=== PATIENT | female | born 1995 | race Caucasian/White ===

== ENCOUNTER 2019-06-28 09:00 | Inpatient (IN) | payer OTHER ==
[2019-06-28] MEDS ORDERED: ELECTROLYTE-148 SOLN 1,000 ML IV SCH (09:40)
[2019-06-28 10:05] VITALS: BMI 28.5
[2019-06-28 10:42] LABS: BASO % 0.3 % (0-2.0); EOS % 0.1 % (0-4.5); HEMATOCRIT 37.8 % (32.4-45.2); HEMOGLOBIN 13.1 GM/dL (10.7-15.3); LYMPH % 9.4 % (8-40); MCH 31.9 pg (25.7-33.7); MCHC 34.7 g/dl (32.0-36.0); MEAN PLT VOLUME 9.2 fl (7.5-11.1); MONO % 5.3 % (3.8-10.2); NEUT % 84.9 % (42.8-82.8); PLATELET COUNT 196 K/MM3 (134-434); RBC 4.11 M/mm3 (3.60-5.2); WHITE BLOOD COUNT 10.7 K/mm3 (4.0-10.0)
--- NOTE | 2019-06-28 10:56 | HP ---
Past Medical History - Primary Care Physician PCP:: Mickie Rivers - Admission Chief Complaint: 23yo P0. painfull contructions since 6am, no VB, LOF, + FM, desires pain meds History of Present Illness: 1. Late registrant - was planning on TOP, missed 1st tr. genetic testing 2. MHTFR positive - ASA recommended 3. Rh neg - s/p RhoGam 03/29/19 - will determine need for RhoGham post delivery 4. was on Psych polypharmacy early in - off meds the rest of 5. Flu shot 03/29/19 6. TDap 04/26/19 7. No h/o HSV History Source: Patient, Medical Record Limitations to Obtaining History: No Limitations - Past Medical History Pulmonary: Yes: Asthma (mild, inhaler PRN, no outbreaks in ) Gastrointestinal: Yes: Irritable Bowel Disease ...: 1 ...Para: 0 ...Term: 0 ...: 0 ...Spon : 0 ...Induced : 0 ...Multiple Gestation: 0 ...LMP: 09/21/18 ... Weeks Gestation by Dates: 40.0 ...EDC by Dates: 06/28/19 ...EDC by Sono: 06/26/19 Heme/Onc: Yes: Other (MHTFR carrier - was recommended ASA in ) Psych: Yes: Anxiety, Depression, Other (ADD) - Past Surgical History Past Surgical History: Yes: None Hx Myomectomy: No Hx Transabdominal Cerclage: No - Smoking History Smoking history: Never smoked Have you smoked in the past 12 months: No - Alcohol/Substance Use Hx Alcohol Use: No History of Substance Use: reports: None - Social History Usual Living Arrangement: Yes: With Significant Other History of Recent Travel: No Home Medications - Allergies Allergies/Adverse Reactions: Allergies Allergy/AdvReac Type Severity Reaction Status Date / Time No Known Allergies Allergy Verified 06/28/19 09:54 - Home Medications Home Medications: Ambulatory Orders Pnv No.95/Ferrous Fum/Folic AC [ Vitamin Tablet] 1 each PO DAILY Family Medical History Family Hx Cancer: Mother (skin) Review of Systems - Review of Systems Constitutional: reports: No Symptoms Eyes: reports: No Symptoms HENT: reports: No Symptoms Neck: reports: No Symptoms Cardiovascular: reports: No Symptoms Respiratory: reports: No Symptoms Gastrointestinal: reports: No Symptoms Genitourinary: reports: Other (uterine contructions) Musculoskeletal: reports: No Symptoms Integumentary: reports: No Symptoms Neurological: reports: No Symptoms Endocrine: reports: No Symptoms Hematology/Lymphatic: reports: No Symptoms Psychiatric: reports: No Symptoms Pain Intensity: 9 Physical Exam - Maternity Vital Signs: Vital Signs Temperature 98.2 F 06/28/19 10:08 Pulse Rate 81 06/28/19 10:08 Respiratory Rate 20 06/28/19 10:08 Blood Pressure 111/69 06/28/19 10:08 O2 Sat by Pulse Oximetry (%) Constitutional: Yes: Well Nourished, No Distress, Calm Eyes: Yes: WNL, Conjunctiva Clear, EOM Intact HENT: Yes: WNL, Atraumatic, Normocephalic Neck: Yes: WNL, Supple, Trachea Midline Cardiovascular: Yes: WNL, Regular Rate and Rhythm Lungs: Clear to auscultation Breast(s): Yes: WNL - Abdominal Exam/OB Fundal Height: 40 (EFW 7lb) Number of Fetuses: Single Presentation: Vertex Contractions: Yes Regularity: Irregular Intensity: Mod/Strong Monitor Mode: External Heart Rate (range): 130 Heart Rate Location: Midline Category: I Accelerations: Uniform Decelerations: None - Vaginal Exam/OB Vaginal Bleediing: No Speculum Exam: No Dilatation (cm): 5-6 Effacement (%): 90% Amniotic Membrane Status: Intact Presentation: Vertex/Position Station: -3 - Physical Exam Musculoskeletal: Yes: WNL Extremities: Yes: WNL Edema: No Integumentary: Yes: WNL ...Motor Strength: WNL Psychiatric: Yes: WNL, Alert, Oriented - Labs Lab Results: CBC, BMP 06/28/19 10:05 Assessment/Plan 23yo P0 @ 40 wks in active labor admit to L&D Labs, IVF, NPO Epidural requested Fetus Category 1 Maternal status reassuring Adequate pelvis EFW 7lb anticipate
[2019-06-28 11:03] LABS: INR 0.91 (0.83-1.09); PROTHROMBIN TIME (PATIENT) 10.7 SEC (9.7-13.0)
[2019-06-28 11:04] LABS: BLOOD UREA NITROGEN 7.8 mg/dL (7-18); CALCIUM 8.5 mg/dL (8.5-10.1); CREATININE 0.6 mg/dL (0.55-1.3); POTASSIUM 3.9 mmol/L (3.5-5.1)
[2019-06-28 11:06] LABS: ACTIVATED PTT 25.3 SECONDS (25.2-36.5)
[2019-06-28] MEDS ORDERED: FENTANYL/BUPIVACAINE/NS/PF - PCEA - 50 ML DISP.SYRIN EP ONE ×3 (11:14→18:36)
[2019-06-28] MEDS: ELECTROLYTE-148 SOLN 1,000 ML IV SCH ×2 (11:15→18:23)
[2019-06-28] MEDS ORDERED: NALOXONE HCL 0.4 MG/ML VIAL IVPUSH PRN ×2 (12:46→13:23)
[2019-06-28] MEDS ORDERED: FENTANYL/BUPIVACAINE/NS/PF - PCEA - 50 ML DISP.SYRIN EP SCH ×3 (13:00→13:30)
[2019-06-28] MEDS ORDERED: OXYTOCIN 20 UNITS in 0.9% NS 20 UNIT/1,000 ML INFUS.BAG IV ONE (19:58)
[2019-06-28] MEDS ORDERED: LIDOCAINE HCL 1% PRESERVATIVE FREE - 30ML VIAL ONE (20:29)
[2019-06-28] MEDS ORDERED: BENZOCAINE 28 GM HEMORRHOIDAL OINTMENT TP PRN (20:59)
[2019-06-28] MEDS ORDERED: BISACODYL 10 MG SUPP.RECT RC PRN (20:59)
[2019-06-28] MEDS ORDERED: WITCH HAZEL 50% (TUCKS) 40 PAD/JAR PAD TP PRN (20:59)
[2019-06-28] MEDS ORDERED: BENZOCAINE 20% 57 GM BOTTLE TP PRN (20:59)
[2019-06-28] MEDS ORDERED: METHYLERGONOVINE MALEATE 0.2 MG/1 ML AMP IM PRN (20:59)
[2019-06-28] MEDS ORDERED: D5W-LR W/ 20 UNITS OXYTOCIN 20 UNIT/1,000 ML INFUS.BAG IV SCH (21:00)
--- NOTE | 2019-06-28 21:07 | PN ---
Delivery - Delivery Vaginal Delivery: No Problems Type of Anesthesia: Local, Epidural Episiotomy/Laceration: Midline, 1st degree EBL (cc): 300 Delivery, Single - Stages of Labor Date 1st Stage Initiatied: 06/28/19 Time 1st Stage Initiated: 06:00 Date 2nd Stage Initiated: 06/28/19 Time 2nd Stage Initiated: 19:15 Date of Delivery: 06/28/19 Time of Delivery: 20:24 Date Placenta Delivered: 06/28/19 Time Placenta Delivered: 20:29 Placenta: Yes: Spontaneous - Condition of Infant Busser/Roll Cutter Present: Yes Name: Philip Felix Infant Gender: Male Weight: 8 lb Position: Right, OP - 1 Minute Total Score: 9 5 Minutes Total Score: 9 - [place] Feeding Plan Initial Plan: Exclusive throughout hospitalization Benefits of Exclusively reinforced: Yes Remarks - Remarks Remarks: Uncomplicated vaginal delivery over 1st degree laceration, ROP with moderate meconium cord clamped and cut, baby handed to supervisor dehydrogenation Placenta delivered spontaneously perineum repaired with 2-0 Chromic Patient and baby stable in Labor room
[2019-06-28 21:41] LABS: VENOUS PC02 39.5 mmHg (38-52); VENOUS PH 7.35 (7.31-7.41)
[2019-06-28 21:54] LABS: VENOUS PO2 < 49 mmHg (28-48)
[2019-06-28] MEDS: FERROUS SO4 325 MG TABLET (FP) PO SCH (22:00)
[2019-06-29] MEDS: IBUPROFEN 600 MG TABLET (FP) PO PRN ×3 (01:45→20:48)
[2019-06-29] MEDS: ACETAMINOPHEN 325 MG TABLET (FP) PO PRN ×3 (01:46→20:49)
[2019-06-29 08:21] LABS: BASO % 0.3 % (0-2.0); EOS % 0.2 % (0-4.5); HEMATOCRIT 30.6 % (32.4-45.2); HEMOGLOBIN 10.7 GM/dL (10.7-15.3); LYMPH % 12.7 % (8-40); MEAN CELL VOLUME 91.4 fl (80-96); MONO % 6.3 % (3.8-10.2); NEUT % 80.5 % (42.8-82.8); PLATELET COUNT 151 K/MM3 (134-434); RBC 3.35 M/mm3 (3.60-5.2); WHITE BLOOD COUNT 10.5 K/mm3 (4.0-10.0)
--- NOTE | 2019-06-29 08:25 | PN ---
Post Progress Note - Subjective Subjective: Patient without acute complaints. Reports tolerating oral intake without nausea or vomiting. Ambulating without dizziness. Denies fevers or chills. Pain well controlled with oral pain medication. without difficulty. Passing flatus. Post Day: 1 Type of Delivery: Vital Signs: Vital Signs Temperature 98.0 F 06/29/19 05:54 Pulse Rate 72 06/29/19 05:54 Respiratory Rate 20 06/29/19 05:54 Blood Pressure 117/56 L 06/29/19 05:54 O2 Sat by Pulse Oximetry (%) 100 06/28/19 20:15 Breast Exam: Yes: Soft Uterus: Yes: Fundus Firm Abdomen/GI: Yes: Abdomen soft, Tolerating PO Lochia: Yes: Rubra Lochia, amount: Small Extremities: Yes: Calves non-tender Perineum: Yes: Laceration (1st degree) Activity: Ambulating - Labs Labs: CBC WBC 10.7 K/mm3 (4.0-10.0) H 06/28/19 10:05 RBC 4.11 M/mm3 (3.60-5.2) 06/28/19 10:05 Hgb 13.1 GM/dL (10.7-15.3) 06/28/19 10:05 Hct 37.8 % (32.4-45.2) 06/28/19 10:05 MCV 92.0 fl (80-96) 06/28/19 10:05 MCH 31.9 pg (25.7-33.7) 06/28/19 10:05 MCHC 34.7 g/dl (32.0-36.0) 06/28/19 10:05 RDW 14.0 % (11.6-15.6) 06/28/19 10:05 Plt Count 196 K/MM3 (134-434) 06/28/19 10:05 MPV 9.2 fl (7.5-11.1) 06/28/19 10:05 Absolute Neuts (auto) 9.1 K/mm3 (1.5-8.0) H 06/28/19 10:05 Neutrophils % 84.9 % (42.8-82.8) H 06/28/19 10:05 Lymphocytes % 9.4 % (8-40) 06/28/19 10:05 Monocytes % 5.3 % (3.8-10.2) 06/28/19 10:05 Eosinophils % 0.1 % (0-4.5) 06/28/19 10:05 Basophils % 0.3 % (0-2.0) 06/28/19 10:05 Nucleated RBC % 0 % (0-0) 06/28/19 10:05 Assessment/Plan 23yo P1 s/p VSS, Afebrile voiding, tolerating PO VSS, Afebrile cont. routine care flow Blood type to determine if mother needs RhoGam baby circumcised Plan d/c 06/30/19
[2019-06-29] MEDS: FERROUS SO4 325 MG TABLET (FP) PO SCH ×3 (10:20→21:00)
[2019-06-29] MEDS: PRENATAL VITAMINS W/ FOLIC ACID TABLET (FP) PO SCH (10:20)
[2019-06-29] MEDS ORDERED: SENNOSIDES/DOCUSATE COMBO (SENNA PLUS) TABLET (UD) PO PRN (22:00)
[2019-06-30] MEDS: IBUPROFEN 600 MG TABLET (FP) PO PRN (05:38)
[2019-06-30] MEDS: ACETAMINOPHEN 325 MG TABLET (FP) PO PRN (05:39)
--- NOTE | 2019-06-30 08:06 | DS ---
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 Signs: Vital Signs Temperature 97.5 F L 06/29/19 22:00 Pulse Rate 73 06/29/19 22:00 Respiratory Rate 20 06/29/19 22:00 Blood Pressure 115/63 06/29/19 22:00 O2 Sat by Pulse Oximetry (%) 100 06/28/19 20:15 Constitutional: Yes: Well Nourished, No Distress, Calm Eyes: Yes: WNL, Conjunctiva Clear, EOM Intact HENT: Yes: WNL, Atraumatic, Normocephalic Neck: Yes: WNL, Supple, Trachea Midline Cardiovascular: Yes: WNL, Regular Rate and Rhythm Respiratory: Yes: WNL, Regular, CTA Bilaterally Gastrointestinal: Yes: WNL, Normal Bowel Sounds, Soft ...Rectal Exam: Yes: Deferred Renal/: Yes: WNL Internal Exam Deferred: Yes ....Post : Yes: Uterus firm, Uterus non-tender, Slight lochia rubra Breast(s): Yes: WNL Musculoskeletal: Yes: WNL Extremities: Yes: WNL Edema: Yes Edema: LLE: Trace, RLE: Trace Integumentary: Yes: WNL Neurological: Yes: WNL, Alert, Oriented ...Motor Strength: WNL Psychiatric: Yes: WNL, Alert, Oriented Labs: CBC, BMP 06/29/19 07:30 06/28/19 10:05 Delivery - Delivery Vaginal Delivery: No Problems Type of Anesthesia: Local, Epidural Episiotomy/Laceration: Midline, 1st degree EBL (cc): 300 Delivery, Single - Stages of Labor Date 1st Stage Initiatied: 06/28/19 Time 1st Stage Initiated: 06:00 Date 2nd Stage Initiated: 06/28/19 Time 2nd Stage Initiated: 19:15 Date of Delivery: 06/28/19 Time of Delivery: 20:24 Time Placenta Delivered: 20:29 Placenta: Yes: Spontaneous - Condition of Psychotherapist Social Worker/Blanket Winder Helper Present: Yes Name: Philip Felix Infant Gender: Male Weight: 3.629 kg Position: Right, OP Total Hours ROM (Hrs/Mins): 2hrs - 1 Minute Total Score: 9 5 Minutes Total Score: 9 - Feeding Plan Initial Plan: Exclusive throughout hospitalization Benefits of Exclusively reinforced: Yes Discharge Summary Problems reviewed: Yes Reason For Visit: LABOR ADMISSION Labor at term, mild anemia Procedures: Principal: JOSAFAT Hospital Course: Normal recovery Plan of Treatment: Discharge to home. instruction reviewed. F/u in-office in 1 week. Condition: Good - Instructions Diet, Activity, Other Instructions: Physical activity Resume your normal everyday activity as tolerated no heavy lifting or exercise until seen by your surgeon. You may walk unlimited rolan of and climb stairs. You may resume driving the car when you feel safe and comfortable behind the wheel. No sexual activity as instructed. Wound care If you have a bandage, leave it on, and keep dry for 48-72 hours. After that time discard the outer bandage. If they are tapes on the skin under the out of bandage leave them in place. They will peel off in the next 7 to 10 days. Do Not Peel them off. You may shower the day after surgery. If there are tapes present on the skin, you may shower over them. Diet There are no dietary restrictions. Eat healthy, high-fiber foods. Drink 6 to 8 glasses of liquid each day. This will assist in keeping your bowels are regular. Pain management You may take Tylenol or acetaminophen or Ibuprofen (for example, Motrin, Advil etc.) from my pain prescription medication is ordered should be taken as prescribed for moderate to severe pain. Call MD for any of the following: Severe pain not relieved by medication Fever of 101 or higher Excessive bleeding or drainage on dressing Inability to urinate Referrals: Mickie Rivers MD [Staff Physician] - Disposition: HOME - Home Medications Comprehensive Discharge Medication List: Ambulatory Orders Pnv No.95/Ferrous Fum/Folic AC [ Vitamin Tablet] 1 each PO DAILY Prescription Drug Monitoring Program (I-STOP) results: I-STOP not reviewed
[2019-06-30] MEDS: PRENATAL VITAMINS W/ FOLIC ACID TABLET (FP) PO SCH (09:52)
[2019-06-30] MEDS: FERROUS SO4 325 MG TABLET (FP) PO SCH (09:53)
[2019-06-30 11:46] VITALS: BP 105/74; PULSE 74; TEMP 98.4
== END 2019-06-30 14:10 | disposition home or self-care (01) | DRG 560 ==
LOC: JDEL 09:00 → JLDR 09:40 → J3W 23:30
PROVIDERS: ADMIT Obstetrics & Gynecology; ATTEND Obstetrics & Gynecology
PROC: 10E0XZZ Delivery of Products of Conception, External Approach (ICD-10-PCS; principal; 2019-06-28)
PROC: 0W8NXZZ Division of Female Perineum, External Approach (ICD-10-PCS; 2019-06-28)
PROC: 0HQ9XZZ Repair Perineum Skin, External Approach (ICD-10-PCS; 2019-06-28)
DX: O70.0 First degree perineal laceration during delivery (principal); O99.013 Anemia complicating pregnancy, third trimester; Z3A.40 40 weeks gestation of pregnancy; Z37.0 Single live birth
CPT/HCPCS: 36415; 59409; 80048; 82803; 85025; 85461; 85610; 85730; 86593; 86850; 86900; 86901